=== PATIENT | male | born 2005 | race Caucasian/White ===

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

== ENCOUNTER 2023-09-12 17:23 | Emergency (ER) | payer OTHER ==
[~2023-09-12] VITALS: Ht 180.3 cm; Wt 137.0 kg
[2023-09-12 17:52] VITALS: BP_SYST 134; PULSE 88; RESP 22; TEMP 98.3; O2SAT 96
[2023-09-12] MEDS ORDERED: IBUP-1971 PO (18:42)
[2023-09-12] MEDS ORDERED: CORTEARS LEFT EAR (18:42)
[2023-09-12] MEDS ORDERED: AMOX500C2 PO (18:42)
[2023-09-12 18:53] VITALS: BP_SYST 134; PULSE 88; RESP 22; TEMP 98.3; O2SAT 96
== END 2023-09-12 18:53 | disposition home or self-care (01) ==
LOC: SED 17:23
DX: H60.502 Unspecified acute noninfective otitis externa, left ear (principal); Z79.899 Other long term (current) drug therapy
CPT/HCPCS: 99283